=== PATIENT | female | born 1980 | race Caucasian/White ===

== ENCOUNTER 2024-01-26 04:00 | Emergency (ER) | payer OTHER ==
[~2024-01-26] VITALS: Ht 162.6 cm; Wt 64.4 kg
[2024-01-26 04:06] VITALS: BP 190/88; PULSE 70; RESP 17; TEMP 97; O2SAT 98
[2024-01-26 04:16] VITALS: BP 190/88; PULSE 70; RESP 17; TEMP 97; O2SAT 98
[2024-01-26] MEDS ORDERED: CHLO-1090 PO (04:24)
[2024-01-26] MEDS ORDERED: IBUP-2213 PO (04:24)
== END 2024-01-26 04:33 | disposition home or self-care (01) ==
LOC: MED 04:00
DX: J06.9 Acute upper respiratory infection, unspecified (principal); H92.03 Otalgia, bilateral; I10 Essential (primary) hypertension
CPT/HCPCS: 99282